=== PATIENT | male | born 1970 | race Caucasian/White ===

== ENCOUNTER → 2020-04-15 | Day surgery (SDC) | payer BC ==
--- NOTE | 2020-04-15 13:36 | RAD REPORT ---
EXAM DESCRIPTION: US - Guided FNA Non Breast - 04/15/2020 10:36 am CLINICAL HISTORY: Thyroid nodule ICD E 04.1 COMPARISON: Not available TECHNIQUE: Risks, benefits and alternatives of procedure explained to the patient and informed conse nt obtained. Skin and subcutaneous tissues anesthetized with lidocaine. Under sonographic guidance six 25 gauge needle passes were obtained into the dominant nodule within t he right lobe of the thyroid gland. Specimens given to pathology. Patient experienced no immediate complication IMPRESSION: Fine-needle aspiration of a dominant nodule within l right lobe of thyroid gland
== END ==
LOC: FNA 09:43
PROVIDERS: ATTEND Otolaryngology
PROC: 0GJK3ZZ Inspection of Thyroid Gland, Percutaneous Approach (ICD-10-PCS; principal; 2020-04-15)
DX: E04.1 Nontoxic single thyroid nodule (principal)
CPT/HCPCS: 88162

== ENCOUNTER 2022-06-12 16:31 | Emergency (ER) | payer BC ==
[2022-06-12 17:08] LABS: Absolute Lymphocytes (CBC) 1.1 K/uL (0.7-4.9); Hematocrit 42.7 % (39.6-49.0); Lymphocytes % 15.8 % (15.3-44.8); MCV 91.2 fL (80-100); MPV 8.5 fL (7.6-11.3); RBC Red Blood Cell Count 4.68 M/uL (4.33-5.43)
[2022-06-12 17:25] LABS: Potassium 3.8 mmol/L (3.5-5.1)
--- NOTE | 2022-06-12 19:11 | ER ---
Nurse's Notes [facility] Name: Ranulfo Alfonso Age: 51 yrs Sex: Male : 1970 Arrival Date: 06/12/2022 Time: 16:40 Bed 6 Private MD: Diagnosis: Hypoglycemia, unspecified Presentation: 06/12 16:40 Chief complaint: EMS states: "51 year male that is having low blood sugar today. he had jd3 sent his texts that did not make since. she called to his work to see if he was there and they reported that he had left at about 1pm. she had them check the parking lot and they found him sitting in his car altered. his got there and gave him some orange juice and snickers. on our arrival we got an initial BGL of 46. we started a 20 G IV to his left AC and gave about 225 ML of D 10. post BGL was 128 and he was becoming more coherent and talking normal again. so it is assumed that he has been sitting in his car for 3 hours so they are unsure if he fell or has any other injury. the only thing the pt reports now is that his head hurts, reporting that the pain is similar to the feeling after coming up from a low blood sugar.". Coronavirus screen: At this time, the client does not indicate any symptoms associated with coronavirus-19. Ebola Screen: No symptoms or risks identified at this time. Initial Sepsis Screen: Does the patient meet any 2 criteria? No. Patient's initial sepsis screen is negative. Does the patient have a suspected source of infection? No. Patient's initial sepsis screen is negative. Risk Assessment: Do you want to hurt yourself or someone else? Patient reports no desire to harm self or others. Onset of symptoms was June 12, 2022. 16:40 Method Of Arrival: EMS: [facility] jd3 16:40 Acuity: KELVIN 2 jd3 Historical: - Allergies: 16:48 PENICILLINS; jd3 16:48 SHELLFISH; jd3 - Home Meds: 16:48 metronic inulin pump [Active]; Crestor oral [Active]; jd3 - PMHx: 16:48 Diabetes mellitus; jd3 - PSHx: 16:48 Appendectomy; jd3 - Immunization history:: Adult Immunizations up to date, Client reports receiving the 2nd dose of the Covid vaccine, Flu vaccine is not up to date. - Social history:: Smoking status: Patient/guardian denies using tobacco. Screenin:28 Abuse screen: Denies threats or abuse. Denies injuries from another. Nutritional db screening: No deficits noted. Tuberculosis screening: No symptoms or risk factors identified. Fall Risk None identified. No fall in past 12 months (0 pts). No secondary diagnosis (0 pts). IV access (20 points). Ambulatory Aid- None/Bed Rest/Nurse Assist (0 pts). Gait- Normal/Bed Rest/Wheelchair (0 pts) Mental Status- Oriented to own ability (0 pts). Total Benites Fall Scale indicates No Risk (0-24 pts). Assessment: 17:00 Reassessment: Patient appears in no apparent distress at this time. Patient is alert, db oriented x 3, equal unlabored respirations, skin warm/dry/pink. hypoglycemic glucose 46 patient was altered when found him. given D10 by EMS. Feeling better now Patient states feeling better. Patient states symptoms have improved. General: Appears in no apparent distress. comfortable, Behavior is calm, cooperative, appropriate for age, quiet. Pain: Denies pain. Neuro: No deficits noted. Neuro: No deficits noted. Level of Consciousness is awake, alert, obeys commands, Oriented to person, place, time, situation, Appropriate for age. Cardiovascular: No deficits noted. Respiratory: No deficits noted. Respiratory: No deficits noted. 18:00 Reassessment: Patient appears in no apparent distress at this time. Patient and/or db family updated on plan of care and expected duration. Pain level reassessed. Patient is alert, oriented x 3, equal unlabored respirations, skin warm/dry/pink. eating meal Patient states feeling better. Patient states symptoms have improved. Vital Signs: 16:48 BP 149 / 71; Pulse 83; Resp 17 S; Temp 97.8(O); Pulse Ox 98% on R/A; Weight 104.33 kg jd3 (R); Height 5 ft. 11 in. (180.34 cm) (R); Pain 0/10; 17:30 BP 115 / 68; Pulse 99; Resp 18; Pulse Ox 98% on R/A; db 18:00 BP 116 / 103; Pulse 99; Resp 18; Pulse Ox 100% on R/A; db 16:48 Body Mass Index 32.08 (104.33 kg, 180.34 cm) jd3 ED Course: 16:40 Patient arrived in ED. jd3 16:43 [facility]C [facility] kb 16:43 Richard King MD is Attending Physician. kb 16:47 Triage completed. jd3 16:50 Arm band placed on. jd3 16:51 Elba Suarez, RN is Primary Nurse. db 17:00 Maintain EMS IV. Dressing intact. Gauge \\T\\ site: 20 G right AC. db 17:05 Basic Metabolic Panel Sent. jd3 17:05 CBC with Diff Sent. jd3 18:29 Patient has correct armband on for positive identification. Bed in low position. Call db light in reach. Side rails up X 1. 19:32 No provider procedures requiring assistance completed. IV discontinued, intact, vc1 bleeding controlled, No redness/swelling at site. Pressure dressing applied. Administered Medications: No medications were administered Medication: 18:28 VIS not applicable for this client. db Outcome: 19:11 Discharge ordered by . kb 19:32 Discharged to home ambulatory, with significant other. vc1 19:32 Condition: good 19:32 Discharge instructions given to patient, Instructed on discharge instructions, follow up and referral plans. medication usage, Demonstrated understanding of instructions, follow-up care, medications, Prescriptions given X 1. 19:32 Patient left the ED. vc1 Signatures: Tina Bolton FNP-C FNP-Shailesh Camara RN RN jNhi Monique RN RN vc1 Elba Suarez, ULISSES RN db
--- NOTE | 2022-06-12 19:11 | EDPHYS ---
Physician Documentation [facility] Name: Ranulfo Alfonso Age: 51 yrs Sex: Male : 1970 Arrival Date: 06/12/2022 Time: 16:40 Bed 6 Private MD: ED Physician Richard King HPI: 06/12 18:43 This 51 yrs old Male presents to ER via EMS with complaints of hypoglycemia. kb 18:43 The patient or guardian reports hypoglycemia, Treatment prior to arrival includes: EMS kb checked blood sugar on arrival, which was 46, D10. Onset: The symptoms/episode began/occurred just prior to arrival. Associated signs and symptoms: Pertinent positives: ams. Current symptoms: In the emergency department the patient's symptoms have resolved, the patient is alert and fully oriented, has normal speech, has normal responsiveness, has no confusion. The patient has experienced similar episodes in the past. The patient has not recently seen a physician. EMS reports pt was in his car in the parking lot of his job with confusion and a BGL of 46. Pt states he uses an insulin pump and it didn't shut off when his sugar got low like it normally does. Pt was given D10 in route by EMS and is feeling much better now. . Historical: - Allergies: 16:48 PENICILLINS; jd3 16:48 SHELLFISH; jd3 - Home Meds: 16:48 metronic inulin pump [Active]; Crestor oral [Active]; jd3 - PMHx: 16:48 Diabetes mellitus; jd3 - PSHx: 16:48 Appendectomy; jd3 - Immunization history:: Adult Immunizations up to date, Client reports receiving the 2nd dose of the Covid vaccine, Flu vaccine is not up to date. - Social history:: Smoking status: Patient/guardian denies using tobacco. ROS: 18:48 Constitutional: Negative for fever, chills, and weight loss. kb 18:48 All other systems are negative. Exam: 18:48 Constitutional: This is a well developed, well nourished patient who is awake, alert, kb and in no acute distress. Head/Face: Normocephalic, atraumatic. Eyes: Pupils equal round and reactive to light, extra-ocular motions intact. Lids and lashes normal. Conjunctiva and sclera are non-icteric and not injected. Cornea within normal limits. Periorbital areas with no swelling, redness, or edema. ENT: Moist Mucous membranes Cardiovascular: Regular rate and rhythm with a normal S1 and S2. No gallops, murmurs, or rubs. No pulse deficits. Respiratory: Respirations even and unlabored. No increased work of breathing. Talking in full sentences Skin: Warm, dry with normal turgor. Normal color. MS/ Extremity: Pulses equal, no cyanosis. Neurovascular intact. Full, normal range of motion. Neuro: Awake and alert, GCS 15, oriented to person, place, time, and situation. Moves all extremities. Normal gait. Psych: Awake, alert, with orientation to person, place and time. Behavior, mood, and affect are within normal limits. Vital Signs: 16:48 BP 149 / 71; Pulse 83; Resp 17 S; Temp 97.8(O); Pulse Ox 98% on R/A; Weight 104.33 kg jd3 (R); Height 5 ft. 11 in. (180.34 cm) (R); Pain 0/10; 17:30 BP 115 / 68; Pulse 99; Resp 18; Pulse Ox 98% on R/A; db 18:00 BP 116 / 103; Pulse 99; Resp 18; Pulse Ox 100% on R/A; db 16:48 Body Mass Index 32.08 (104.33 kg, 180.34 cm) jd3 MDM: 16:44 Patient medically screened. kb 18:48 Data reviewed: vital signs, nurses notes. Data interpreted: Pulse oximetry: on room air kb is 100 %. Interpretation: normal. Counseling: I had a detailed discussion with the patient and/or guardian regarding: the historical points, exam findings, and any diagnostic results supporting the discharge/admit diagnosis, lab results, the need for outpatient follow up, a family practitioner, to return to the emergency department if symptoms worsen or persist or if there are any questions or concerns that arise at home. ED course: Pt states he wants to go home. States he is feeling completely back to normal and is ready to go. . 06/12 16:44 Order name: CBC with Diff; Complete Time: 17:21 kb 06/12 16:44 Order name: Basic Metabolic Panel; Complete Time: 17:25 kb 06/12 16:44 Order name: IV Start; Complete Time: 16:54 kb 06/12 16:44 Order name: Diet Regular; Complete Time: 16:44 kb 06/12 17:03 Order name: Glucose, Ancillary Testing; Complete Time: 17:04 EDMS 06/12 18:37 Order name: Glucose, Ancillary Testing; Complete Time: 18:40 EDMS Administered Medications: No medications were administered Disposition: 06/13 11:07 Co-signature as Attending Physician, Richard King MD I agree with the assessment and rt plan of care. Disposition Summary: 06/12/22 19:11 Discharge Ordered Location: Home kb Condition: Stable kb Diagnosis - Hypoglycemia, unspecified kb Followup: kb - With: Emergency Department - When: As needed - Reason: Worsening of condition Followup: kb - With: Private Physician - When: 2 - 3 days - Reason: Recheck today's complaints, Continuance of care, Re-evaluation by your physician Discharge Instructions: - Discharge Summary Sheet kb - Hypoglycemia, [id number] kb Forms: - Medication Reconciliation Form kb - Thank You Letter kb - Antibiotic Education kb - Prescription Opioid Use kb Signatures: Dispatcher [employer] EDMS Tina Bolton, MADELINE-C MADELINE-Shailesh Camara, RN RN Richard Garcia MD MD rt
[2022-06-12 19:36] VITALS: TEMP 97.8
[2022-06-12 19:39] VITALS: BP 116/103; O2SAT 100
== END 2022-06-12 19:32 | disposition home or self-care (01) ==
LOC: ER 16:31
DX: E11.649 Type 2 diabetes mellitus with hypoglycemia without coma (principal); Z79.4 Long term (current) use of insulin; Z96.41 Presence of insulin pump (external) (internal); Z88.0 Allergy status to penicillin; Z91.013 Allergy to seafood
CPT/HCPCS: 36415; 80048; 82947; 85025; 99283